=== PATIENT | male | born 1965 | race Caucasian/White ===

== ENCOUNTER 2017-02-26 19:10 | Emergency (ER) | payer OTHER ==
[2017-02-26 19:35] VITALS: BMI 21.1
[2017-02-26] MEDS ORDERED: HYDROmorphone HCL CARPU-JECT 1 MG/1 ML DISP.SYRIN IVPUSH ONE ×3 (20:01→22:37)
--- NOTE | 2017-02-26 20:04 | PDOC ---
History of Present Illness - General Chief Complaint: Back Pain Stated Complaint: BACK PAIN Time Seen by Provider: 02/26/17 19:51 - History of Present Illness Initial Comments: 02/26/17 20:02 CHIEF COMPLAINT: back pain HISTORY OF PRESENT ILLNESS: 51 yo M with hx of HTN and multiple back and neck surgeries presents to ED with lower back pain s/p fall two days ago. Patient reports that he was in the shower when he slipped on conditioner in the tub, fell backwards and hit the back of his head on the tile and landed on his bottom. He states that the last two days he "felt pain but when I woke up this morning I couldn't even move." He states he is taking Endocet and Valium for his chronic pain but those medications did not provide any relief today. He states that he can walk but that it is painful and he can only walk slowly. He denies any loss of sensation to his legs or any loss of bowel or bladder function. He states that he does have intermittent numbness and tingling to his legs "but I always have that." PAST MEDICAL HISTORY: Denies past medical history FAMILY HISTORY: Denies SOCIAL HISTORY: Current smoker, 6 cigarettes. Denies alcohol, illicit drug use. SURGICAL HISTORY: Denies ALLERGIES: morphine (but has had Dilaudid in the past without adverse effects) REVIEW OF SYSTEMS General/Constitutional: Denies fever or chills. Denies weakness, weight change. HEENT: Denies change in vision. Denies ear pain or discharge. Denies sore throat. Cardiovascular: Denies chest pain or shortness of breath. Respiratory: Denies cough, wheezing, or hemoptysis. Gastrointestinal: Denies nausea, vomiting, diarrhea or constipation. Denies rectal bleeding. Genitourinary: Denies dysuria, frequency, or change in urination. Musculoskeletal: Severe left lower back pain, worsened with movement. Chronic cervical spine pain. Skin and breasts: Denies rash or easy bruising. Neurologic: Headache x 2 days. Denies vertigo, loss of consciousness, or loss of sensation. PHYSICAL EXAM General Appearance: Well-appearing, appropriately dressed. No apparent distress , no intoxication. HEENT: EOMI, PERRLA, normal ENT inspection, normal voice, TMs normal, pharynx normal. No conjunctival pallor. No photophobia, scleral icterus. Neck: Supple. Trachea midline. No tenderness, rigidity, carotid bruit, stridor , lymphadenopathy, or thyromegaly. Respiratory/Chest: Lungs CTAB. No shortness of breath, chest tenderness, respiratory distress, accessory muscle use. No crackles, rales, rhonchi, stridor , wheezing, dullness Cardiovascular: RRR. S1, S2. No JVD, murmur, bradycardia, tachycardia. Vascular Pulses: Dorsalis-Pedis (R): 2+, Dorsalis-Pedis (L): 2+ Gastrointestinal/Abdominal: Normal bowel sounds. Abdomen soft, non-distended. No tenderness or rebound tenderness. No organomegaly, pulsatile mass, guarding , hernia, hepatomegaly, splenomegaly. Lymphatic: No adenopathy, tenderness. Musculoskeletal/Extremities: Marked tenderness to L lower back. Normal inspection. FROM of all extremities, normal capillary refill. Pelvis Stable. No CVA tenderness. No tenderness to extremities, pedal edema, swelling, erythema or deformity. Integumentary: Appropriate color, dry, warm. No cyanosis, erythema, jaundice or rash Neurologic: instrument repair specialist II-XII intact. Fully oriented, alert. Appropriate mood/affect. Motor strength 5/5. No appreciable EOM palsy, facial droop or sensory deficit. 02/26/17 20:21 Past History - Past Medical History Allergies/Adverse Reactions: Allergies Allergy/AdvReac Type Severity Reaction Status Date / Time morphine Allergy Verified 02/26/17 19:30 Home Medications: Ambulatory Orders Carvedilol [Coreg] 25 mg PO BID 06/12/14 Rosuvastatin Calcium [Crestor] 20 mg PO HS 06/12/14 Aspirin [ASA -] 81 mg PO DAILY tab.chew 06/20/15 Diazepam [Valium] 10 mg PO HS 02/26/17 Diazepam [Valium] 10 mg PO HS PRN #10 tablet MDD 2 02/26/17 Naproxen [Naprosyn -] 250 mg PO BID #14 tablet 02/26/17 Oxycodone HCl/Acetaminophen [Endocet 7.5-325 mg Tablet] 1 each PO ASDIR PRN MDD 12/ day 02/26/17 HTN: Yes Hypercholesterolemia: Yes Suicide Attempt (Hx): No - Surgical History Abdominal Surgery: Yes (RIGHT INGUINAL HERNIA REPAIR) Neurologic Surgery: Yes (BACK SX,NECK SX) Orthopedic Surgery: Yes (RT KNEE SX) - Immunization History Td Vaccination: (06/2012) Immunization Up to Date: Yes - Psycho/Social/Smoking Cessation Hx Anxiety: No Suicidal Ideation: No Smoking Status: Yes Smoking History: Former smoker Have you smoked in the past 12 months: Yes Number of Cigarettes Smoked Daily: 10 If you are a former smoker, when did you quit?: 5 MONTHS AGO Information on smoking cessation initiated: No 'Breaking Loose' booklet given: 06/19/15 Hx Alcohol Use: No Drug/Substance Use Hx: No Substance Use Type: None Hx Substance Use Treatment: No *Physical Exam - Vital Signs Last Vital Signs Temp Pulse Resp BP Pulse Ox 98.2 F 55 L 16 130/76 02/26/17 19:33 02/26/17 19:33 02/26/17 19:33 02/26/17 19:33 ED Treatment Course - LABORATORY CBC & Chemistry Diagram: 02/26/17 20:30 02/26/17 20:30 - RADIOLOGY Radiology Studies Ordered: Category Date Time Status LUMBAR SPINE CT W/O CONTRAST [CT] Stat CT Scan 02/26/17 19:59 Ordered Medical Decision Making - Medical Decision Making 02/26/17 20:28 51 yo M with hx of HTN and multiple back and neck surgeries presents to ED with lower back pain s/p fall two days ago. -CBC, CMP -lumbar spine CT -0.5 mg Dilaudid 02/26/17 21:15 Patient reassessed, states the pain medication did not do anything for his pain and he is still in a lot of discomfort. -1mg Dilaudid *DC/Admit/Observation/Transfer Diagnosis at time of Disposition: Back pain Qualifiers: Back pain location: low back pain Chronicity: chronic Back pain laterality: left Sciatica presence: without sciatica Qualified Code(s): M54.5 - Low back pain; G89.29 - Other chronic pain - Discharge Dispostion Disposition: HOME Condition at time of disposition: Stable Admit: No - Prescriptions Prescriptions: Naproxen [Naprosyn -] 250 mg PO BID #14 tablet Diazepam [Valium] 10 mg PO HS PRN #10 tablet MDD 2 PRN Reason: Back Pain - Referrals Referrals: Eliot Osorio MD [Primary Care Provider] - - Patient Instructions Printed Discharge Instructions: DI for Low Back Pain Additional Instructions: Please follow up with your orthopedic surgeon on Tuesday as planned. If you experience any loss of sensation to your legs, loss of bowel or bladder function , inability to walk, or any new or worsening symptoms, please return to the ER.
[2017-02-26] MEDS ORDERED: HYDROmorphone HCL CARPU-JECT 1 MG/1 ML DISP.SYRIN ONE ×3 (20:29→22:43)
[2017-02-26 20:47] LABS: MCH 27.4 pg (25.7-33.7); MCHC 33.1 g/dl (32.0-35.9); MEAN CELL VOLUME 82.9 fl (80-96); MEAN PLT VOLUME 7.3 fl (7.5-11.1); PLATELET COUNT 240 K/MM3 (134-434); RDW 15.3 % (11.9-15.9); WHITE BLOOD COUNT 10.3 K/mm3 (4.0-10.0)
[2017-02-26 21:20] LABS: ALBUMIN 3.6 g/dl (3.4-5.0); ALK PHOS 44 U/L (45-117); ANION GAP 4 (8-16); BILIRUBIN,TOTAL 0.4 mg/dL (0.2-1.0); CO2 31 mmol/L (21-32); CREATININE 0.7 mg/dL (0.7-1.3); GLUCOSE,RANDOM 92 mg/dL (74-106); SGOT/AST 8 U/L (15-37); SGPT/ALT 12 U/L (12-78); TOT PROT 6.4 g/dl (6.4-8.2)
[2017-02-26] MEDS ORDERED: KETOROLAC TROMETHAMINE 30 MG/1 ML VIAL IVPUSH ONE (22:37)
[2017-02-26] MEDS ORDERED: KETOROLAC TROMETHAMINE 30 MG/1 ML VIAL ONE (22:43)
[2017-02-26 22:51] VITALS: BP 124/72; PULSE 75; TEMP 98.3
--- NOTE | 2017-02-26 23:06 | PDOC ---
*Physical Exam - Vital Signs Last Vital Signs Temp Pulse Resp BP Pulse Ox 98.3 F 75 18 124/72 02/26/17 22:51 02/26/17 22:51 02/26/17 22:51 02/26/17 22:51 ED Treatment Course - LABORATORY CBC & Chemistry Diagram: 02/26/17 20:30 02/26/17 20:30 - ADDITIONAL ORDERS Additional order review: Laboratory Results 02/26/17 20:30 Sodium 139 Potassium 4.3 Chloride 104 Carbon Dioxide 31 Anion Gap 4 L BUN 13 Creatinine 0.7 D Creat Clearance w eGFR > 60 Random Glucose 92 D Calcium 9.0 Total Bilirubin 0.4 D AST 8 L D ALT 12 D Alkaline Phosphatase 44 L D Total Protein 6.4 Albumin 3.6 02/26/17 20:30 RBC 4.23 MCV 82.9 MCHC 33.1 RDW 15.3 MPV 7.3 L - Medications Given in the ED: ED Medications Discontinued Medications Generic Name Dose Route Start Last Admin Trade Name Freq PRN Reason Stop Dose Admin Hydromorphone HCl 0.5 mg 02/26/17 20:01 02/26/17 20:36 Dilaudid Injection - IVPUSH 02/26/17 20:02 0.5 mg ONCE ONE Administration Hydromorphone HCl 1 mg 02/26/17 21:02 02/26/17 21:06 Dilaudid Injection - IVPUSH 02/26/17 21:03 1 mg ONCE ONE Administration Hydromorphone HCl 1 mg 02/26/17 22:37 02/26/17 22:45 Dilaudid Injection - IVPUSH 02/26/17 22:38 1 mg ONCE ONE Administration Ketorolac Tromethamine 30 mg 02/26/17 22:37 02/26/17 22:45 Toradol Injection - IVPUSH 02/26/17 22:38 30 mg ONCE ONE Administration Medical Decision Making - Medical Decision Making 02/26/17 23:03 Agree with PA/CANE BURNER's evaluation, assessment, and plan. 51yo M hx chronic low back pain p/w paraspinal back pain s/p mechanical fall 2 days ago. Denies any LE weakness, saddle anesthesia, urinary or stool retention/ incontinence. Pain improved with dilaudid -DC to f/u with orthopedic surgeon wnl 2-3 days *DC/Admit/Observation/Transfer Diagnosis at time of Disposition: Back pain Qualifiers: Back pain location: low back pain Chronicity: chronic Back pain laterality: left Sciatica presence: without sciatica Qualified Code(s): M54.5 - Low back pain - Discharge Dispostion Disposition: HOME Admit: No - Prescriptions Prescriptions: Naproxen [Naprosyn -] 250 mg PO BID #14 tablet Diazepam [Valium] 10 mg PO HS PRN #10 tablet MDD 2 PRN Reason: Back Pain - Referrals Referrals: Eliot Osorio MD [Primary Care Provider] - - Patient Instructions Printed Discharge Instructions: DI for Low Back Pain Additional Instructions: Please follow up with your orthopedic surgeon on Tuesday as planned. If you experience any loss of sensation to your legs, loss of bowel or bladder function , inability to walk, or any new or worsening symptoms, please return to the ER. Print Language: CITIZEN OF [place] - Post Discharge Activity - Attestations Physician Attestion: 02/26/17 23:05 I, Dr. Coco Lopez MD, attest that this document has been prepared under my direction and personally reviewed by me in its entirety. I further attest, that it accurately reflects all work, treatment, procedures and medical decision -making performed by me.
== END 2017-02-26 22:50 | disposition home or self-care (01) ==
LOC: JER 19:10
PROC: 3E033NZ Introduction of Analgesics, Hypnotics, Sedatives into Peripheral Vein, Percutaneous Approach (ICD-10-PCS; principal; 2017-02-26)
PROC: 3E0333Z Introduction of Anti-inflammatory into Peripheral Vein, Percutaneous Approach (ICD-10-PCS; 2017-02-26)
DX: M54.5 Low back pain (principal); G89.29 Other chronic pain; I10 Essential (primary) hypertension; E78.00 Pure hypercholesterolemia, unspecified; F17.211 Nicotine dependence, cigarettes, in remission; Z88.6 Allergy status to analgesic agent; Z79.82 Long term (current) use of aspirin
CPT/HCPCS: 36415; 72131-TC; 80053; 85027; 96374; 96375; 96376; 99282-25